=== PATIENT | male | born 1965 | race Caucasian/White ===

== ENCOUNTER → 2016-11-29 | Outpatient (CLI) | payer BC ==
[~2016-11-29] MED LIST: CLARITIN-D 10 M1 T24 PO; FLOMAX 0.40.4 MG/CAP PO; INVANZ INJ1 G/VIAL IV; LIPITOR 10MG10 MG PO; NO HOME MEDICATIONS; NORCO 325 MG-51 TAB PO; ZESTRIL 10MG10 MG PO; ZOFRAN 4MG T4 MG/TAB PO
== END ==
LOC: COL.PUL 09:53
DX: R05 Cough (principal)

== ENCOUNTER 2016-12-26 17:11 | Inpatient (IN) | payer BC ==
[~2016-12-26] VITALS: Ht 182.9 cm; Wt 85.2 kg
[~2016-12-26 17:11] MED LIST changes: -INVANZ INJ1 G/VIAL IV; -LIPITOR 10MG10 MG PO; -ZESTRIL 10MG10 MG PO
[2016-12-26 17:20] VITALS: BP 154/84; PULSE 109; TEMP 101.4
[2016-12-26 18:31] LABS: CREATININE, serum 1.17 mg/dL (0.66-1.25)
[2016-12-26 18:42] VITALS: BP 148/77; PULSE 115; TEMP 102.5
[2016-12-26 21:05] VITALS: BP 125/63; PULSE 115; TEMP 98.9
[2016-12-27 01:47] VITALS: BP 115/62; PULSE 87; TEMP 98.4
[2016-12-27 04:56] VITALS: BP 121/78; PULSE 81; TEMP 98.3
[2016-12-27 09:39] VITALS: BP 119/69; PULSE 83; TEMP 97.7
[2016-12-27 12:50] VITALS: BP 132/79; PULSE 80; TEMP 98.1
[2016-12-27 17:40] VITALS: BP 138/74; PULSE 88; TEMP 98.8
[2016-12-27 22:29] VITALS: BP 138/78; PULSE 101; TEMP 98.8
[2016-12-28 06:02] VITALS: BP 147/89; PULSE 91; TEMP 98.8
[2016-12-28 10:00] VITALS: BP 138/86; PULSE 78; TEMP 98.3
[2016-12-28 12:44] VITALS: BP 158/86; PULSE 84; TEMP 98.2
[2016-12-28 17:54] VITALS: BP 120/98; PULSE 74; TEMP 98.3
[2016-12-28 22:13] VITALS: BP 149/85; PULSE 80; TEMP 98.2
[2016-12-29 05:34] VITALS: BP 125/73; PULSE 77; TEMP 98.5
[2016-12-29 07:22] LABS: CREATININE, serum 0.87 mg/dL (0.66-1.25)
[2016-12-29 10:35] VITALS: BP 148/83; PULSE 71; TEMP 98.2
[2016-12-29 13:54] VITALS: BP 150/82; PULSE 87; TEMP 98.2
[2016-12-29] MEDS ORDERED: FLOMAX 0.40.4 MG/CAP PO (18:03)
[2016-12-29] MEDS ORDERED: INVANZ INJ1 G/VIAL IV (18:03)
[2017-01-14] MEDS ORDERED: LIPITOR 10MG10 MG PO (08:03)
[2017-01-14] MEDS ORDERED: ZESTRIL 10MG10 MG PO (08:03)
== END 2016-12-29 18:35 | disposition home or self-care (01) | DRG 728 ==
LOC: SURG 17:11
PROVIDERS: Urology
PROC: 02HV33Z Insertion of Infusion Device into Superior Vena Cava, Percutaneous Approach (ICD-10-PCS; principal; 2016-12-29)
DX: N41.0 Acute prostatitis (principal); N10 Acute pyelonephritis; I10 Essential (primary) hypertension; N41.1 Chronic prostatitis; B96.20 Unspecified Escherichia coli [E. coli] as the cause of diseases classified elsewhere
CPT/HCPCS: C1751; J0690; J1335; J1580; J1644; J7030; Q9967

== ENCOUNTER 2017-01-26 10:00 | Outpatient (RCR) | payer BC ==
[2016-12-30 09:29] VITALS: BP 146/90; PULSE 71; TEMP 98.6
[2016-12-31 08:17] VITALS: BP 124/83; PULSE 83; TEMP 97.8
[2017-01-01 08:24] VITALS: BP 145/84; PULSE 83
[2017-01-02 08:17] VITALS: BP 133/88; PULSE 88; TEMP 98.2
[2017-01-03 08:48] VITALS: BP 140/87; PULSE 94; TEMP 98.1
[2017-01-03 08:49] LABS: HEMATOCRIT 42.6 % (42.0-52.0); HEMOGLOBIN 14.4 g/dl (13.5-18.0); MEAN CELL VOLUME 88 fl (80.0-100.0); MEAN CORPUSCULAR HEMOGLOBIN 30 pg (27.0-31.0); MEAN CORPUSCULAR HGB CONC 34 g/dl (33.0-37.0); MEAN PLATELET VOLUME 8.8 fl (7.4-10.4); PLATELET COUNT 510 K/mm3 (130-400); RED BLOOD COUNT 4.82 M/mm3 (4.20-5.60); REDCELL DISTRIBUTION WIDTH-CV 13.7 % (11.5-14.5); WHITE BLOOD COUNT 13.7 K/mm3 (4.8-10.8)
[2017-01-03 08:55] LABS: ADJUSTED CALCIUM 8.9 mg/dL (8.4-10.2); ALBUMIN 4.1 gm/dL (3.5-5.0); BILIRUBIN,TOTAL 0.6 mg/dL (0.0-1.0); CREATININE, serum 0.85 mg/dL (0.66-1.25); POTASSIUM 4.4 mmol/L (3.4-5.0); TOTAL PROTEIN 7.1 gm/dL (6.4-8.2)
[2017-01-04 08:08] VITALS: BP 139/84; PULSE 78; TEMP 98.4
[2017-01-05 08:14] VITALS: BP 132/85; PULSE 90; TEMP 98.4
[2017-01-06 08:11] VITALS: BP 135/77; PULSE 80; TEMP 97.5
[2017-01-07 07:39] VITALS: BP 144/82; PULSE 91; TEMP 97.3
[2017-01-08 07:31] VITALS: BP 134/88; PULSE 93; TEMP 97.4
[2017-01-09 08:33] VITALS: BP 132/87; PULSE 84; TEMP 97.9
[2017-01-10 08:20] VITALS: BP 137/93; PULSE 77; TEMP 97.8
[2017-01-10 09:12] LABS: HEMATOCRIT 41.7 % (42.0-52.0); HEMOGLOBIN 13.8 g/dl (13.5-18.0); MEAN CELL VOLUME 89 fl (80.0-100.0); MEAN CORPUSCULAR HEMOGLOBIN 29 pg (27.0-31.0); MEAN CORPUSCULAR HGB CONC 33 g/dl (33.0-37.0); MEAN PLATELET VOLUME 8.7 fl (7.4-10.4); PLATELET COUNT 501 K/mm3 (130-400); RED BLOOD COUNT 4.69 M/mm3 (4.20-5.60); REDCELL DISTRIBUTION WIDTH-CV 13.8 % (11.5-14.5); WHITE BLOOD COUNT 9.2 K/mm3 (4.8-10.8)
[2017-01-10 09:22] LABS: ADJUSTED CALCIUM 9.3 mg/dL (8.4-10.2); ALBUMIN 3.8 gm/dL (3.5-5.0); BILIRUBIN,TOTAL 0.5 mg/dL (0.0-1.0); CALCIUM 9.1 mg/dL (8.4-10.2); CREATININE, serum 0.86 mg/dL (0.66-1.25); POTASSIUM 4.3 mmol/L (3.4-5.0); TOTAL PROTEIN 6.9 gm/dL (6.4-8.2)
[2017-01-11 08:15] VITALS: BP 127/84; PULSE 84; TEMP 98
[2017-01-12 08:08] VITALS: BP 131/77; PULSE 89; TEMP 97.7
[2017-01-13 08:15] VITALS: BP 127/81; PULSE 91; TEMP 98.1
[2017-01-14 08:06] VITALS: BP 118/77; PULSE 83; TEMP 97.8
[2017-01-15 08:15] VITALS: BP 125/80; PULSE 81; TEMP 97.8
[2017-01-16 08:27] VITALS: BP 117/76; PULSE 79; TEMP 97.9
[2017-01-17 08:19] VITALS: BP 121/77; PULSE 88; TEMP 98.2
[2017-01-17 08:40] LABS: BASO # 0.1 (0.0-0.2); BASO % 1.2 % (0.0-2.0); EOS # 0.2 (0.0-0.7); EOS % 2.3 % (0-4.0); GRAN # 4.4 (1.4-6.5); GRAN % 50.4 % (42.2-75.2); HEMATOCRIT 42.2 % (42.0-52.0); HEMOGLOBIN 14.2 g/dl (13.5-18.0); LYMPH # 3.2 (1.2-3.4); LYMPH % 36.7 % (20.0-51.0); MEAN CELL VOLUME 87 fl (80.0-100.0); MEAN CORPUSCULAR HEMOGLOBIN 29 pg (27.0-31.0); MEAN CORPUSCULAR HGB CONC 34 g/dl (33.0-37.0); MEAN PLATELET VOLUME 9.2 fl (7.4-10.4); MONO # 0.8 (0.1-0.6); MONO % 9.3 % (1.7-9.3); PLATELET COUNT 400 K/mm3 (130-400); RED BLOOD COUNT 4.84 M/mm3 (4.20-5.60); REDCELL DISTRIBUTION WIDTH-CV 13.4 % (11.5-14.5); WHITE BLOOD COUNT 8.6 K/mm3 (4.8-10.8)
[2017-01-17 09:16] LABS: ADJUSTED CALCIUM 9.3 mg/dL (8.4-10.2); BILIRUBIN,TOTAL 0.5 mg/dL (0.0-1.0); CALCIUM 9.3 mg/dL (8.4-10.2); CREATININE, serum 0.84 mg/dL (0.66-1.25); POTASSIUM 4.1 mmol/L (3.4-5.0)
[2017-01-18 08:15] VITALS: BP 117/73; PULSE 81; TEMP 97.4
[2017-01-19 08:09] VITALS: BP 119/80; PULSE 88; TEMP 98
[2017-01-20 08:25] VITALS: BP 116/71; PULSE 79; TEMP 98
[2017-01-21 08:14] VITALS: BP 121/81; PULSE 82; TEMP 97.7
[2017-01-22 08:48] VITALS: BP 128/76; PULSE 77; TEMP 98
[2017-01-23 08:17] VITALS: BP 121/77; PULSE 70; TEMP 97.5
[2017-01-24 08:35] VITALS: BP 121/79; PULSE 73; TEMP 97.5
[2017-01-24 09:02] LABS: BASO # 0.1 (0.0-0.2); BASO % 1.1 % (0.0-2.0); EOS # 0.3 (0.0-0.7); EOS % 4.1 % (0-4.0); GRAN # 3.4 (1.4-6.5); GRAN % 45.4 % (42.2-75.2); HEMATOCRIT 39.5 % (42.0-52.0); HEMOGLOBIN 13.3 g/dl (13.5-18.0); MEAN CELL VOLUME 87 fl (80.0-100.0); MEAN CORPUSCULAR HEMOGLOBIN 29 pg (27.0-31.0); MEAN CORPUSCULAR HGB CONC 34 g/dl (33.0-37.0); MEAN PLATELET VOLUME 9.1 fl (7.4-10.4); MONO # 0.8 (0.1-0.6); MONO % 10.1 % (1.7-9.3); PLATELET COUNT 329 K/mm3 (130-400); RED BLOOD COUNT 4.53 M/mm3 (4.20-5.60); REDCELL DISTRIBUTION WIDTH-CV 13.5 % (11.5-14.5); WHITE BLOOD COUNT 7.6 K/mm3 (4.8-10.8)
[2017-01-24 09:23] LABS: ADJUSTED CALCIUM 9.1 mg/dL (8.4-10.2); ALBUMIN 3.7 gm/dL (3.5-5.0); BILIRUBIN,TOTAL 0.6 mg/dL (0.0-1.0); CALCIUM 8.9 mg/dL (8.4-10.2); CREATININE, serum 0.76 mg/dL (0.66-1.25); POTASSIUM 4.2 mmol/L (3.4-5.0); TOTAL PROTEIN 6.6 gm/dL (6.4-8.2)
[2017-01-25 08:08] VITALS: BP 1122/78; PULSE 78; TEMP 97.7
[~2017-01-26] VITALS: Ht 182.9 cm; Wt 86.8 kg
[~2017-01-26 10:00] MED LIST changes: +INVANZ INJ1 G/VIAL IV; +LIPITOR 10MG10 MG PO; +ZESTRIL 10MG10 MG PO
[2017-01-26 10:01] VITALS: BP 141/82; PULSE 74; TEMP 98.1
== END 2017-01-26 10:11 | disposition home or self-care (01) ==
LOC: EUO 10:00
PROVIDERS: Internal Medicine Infectious Disease
DX: N41.9 Inflammatory disease of prostate, unspecified (principal); N39.0 Urinary tract infection, site not specified; R82.71 Bacteriuria
CPT/HCPCS: J1335; J1644

== ENCOUNTER → 2017-04-11 | Outpatient (CLI) | payer BC | LOC: COL.RAD 14:52 | DX: I72.2 Aneurysm of renal artery (principal); I72.8 Aneurysm of other specified arteries | CPT/HCPCS: Q9967 ==

== ENCOUNTER → 2018-10-07 | Outpatient (CLI) | payer BC | LOC: COL.RAD 09:45 | DX: M50.322 Other cervical disc degeneration at C5-C6 level (principal); M48.02 Spinal stenosis, cervical region ==

== ENCOUNTER 2018-12-25 13:27 | Day surgery (SDC) | payer BC ==
[2018-12-25] MEDS ORDERED: ASPIRIN E.C. 8181 MG PO (14:55)
[2018-12-25 16:06] VITALS: BP 121/80; PULSE 64
--- NOTE | 2018-12-25 16:06 | NUR ---
Patient returns to room 4 per cart and is awake and alert. Temp 97.3. Room air sats 97%. IV fluids infusing and denies pain or nausea. Siderails up x2 and call light in reach. Spouse in room. Drinking water and eating pudding.
[2018-12-25 16:21] VITALS: BP 128/69; PULSE 60
--- NOTE | 2018-12-25 16:21 | NUR ---
Room air sats 97%. Denies pain or nausea.
[2018-12-25 16:36] VITALS: BP 115/89; PULSE 60
--- NOTE | 2018-12-25 16:36 | NUR ---
Patient instructed to go to the office tomorrow to be instructed on 24 hour urine. Provided office number for questions and concerns.
--- NOTE | 2018-12-25 16:45 | NUR ---
IV out and dresses self. Ambulatory to the bathroom and is able to void and returns to room.
--- NOTE | 2018-12-25 16:50 | NUR ---
Dismissal instructions signed and voices understanding of these.
[2018-12-25 16:52] VITALS: BP 126/79; PULSE 64; TEMP 97.9
--- NOTE | 2018-12-25 16:55 | NUR ---
Patient dismissed to home per private vehicle driven by spouse and taken to the front door per wheelchair and assisted into car with dismissal instructions in hand.
== END 2018-12-25 16:55 | disposition home or self-care (01) ==
LOC: SDCO 13:27
DX: N21.0 Calculus in bladder (principal); N41.1 Chronic prostatitis; R31.0 Gross hematuria; J30.9 Allergic rhinitis, unspecified; E78.00 Pure hypercholesterolemia, unspecified; I10 Essential (primary) hypertension; M72.2 Plantar fascial fibromatosis; J32.9 Chronic sinusitis, unspecified; Z79.82 Long term (current) use of aspirin; Z80.0 Family history of malignant neoplasm of digestive organs; Z82.49 Family history of ischemic heart disease and other diseases of the circulatory system; Z80.8 Family history of malignant neoplasm of other organs or systems
CPT/HCPCS: C1769; J1100; J1885; J2405; J2704; J3010; J7120

== ENCOUNTER → 2020-03-15 | Outpatient (CLI) | payer BC ==
[~2020-03-15] MED LIST changes: +ASPIRIN E.C. 8181 MG PO
== END ==
LOC: COL.RAD 10:10
DX: Z00.00 Encounter for general adult medical examination without abnormal findings (principal); D34 Benign neoplasm of thyroid gland
CPT/HCPCS: Q9967

== ENCOUNTER → 2020-03-25 | Outpatient (CLI) | payer BC | LOC: COL.RAD 15:24 | DX: M41.85 Other forms of scoliosis, thoracolumbar region (principal) ==

== ENCOUNTER → 2022-03-29 | Outpatient (CLI) | payer BC | LOC: COL.RAD 11:32 | DX: K57.32 Diverticulitis of large intestine without perforation or abscess without bleeding (principal); L02.91 Cutaneous abscess, unspecified | CPT/HCPCS: Q9967 ==

== ENCOUNTER 2022-08-21 12:49 | Inpatient (IN) | payer BC ==
[~2022-08-21] VITALS: Ht 183 cm; Wt 84.9 kg
[2022-09-06] VITALS (13 sets, daily range): BP systolic 115–140; BP diastolic 59–88; PULSE 61–88; TEMP 97.4–98.1
[2022-09-06 11:22] LABS: HEMATOCRIT 43.4 % (42.0-52.0); HEMOGLOBIN 14.8 g/dl (13.5-18.0); MEAN CELL VOLUME 89 fl (80.0-100.0); MEAN CORPUSCULAR HEMOGLOBIN 30 pg (27-31); MEAN CORPUSCULAR HGB CONC 34 g/dl (33.0-37.0); MEAN PLATELET VOLUME 8.8 fl (7.4-10.4); PLATELET COUNT 403 K/mm3 (130-400); RED BLOOD COUNT 4.88 M/mm3 (4.20-5.60); REDCELL DISTRIBUTION WIDTH-CV 14.5 % (11.5-14.5)
[2022-09-06 11:46] LABS: ALBUMIN 4.4 gm/dL (3.5-5.0); BILIRUBIN,TOTAL 0.7 mg/dL (0.2-1.2); CALCIUM 9.3 mg/dL (8.4-10.2); CREATININE, serum 1.04 mg/dL (0.72-1.25); POTASSIUM 4.2 mmol/L (3.5-4.5); TOTAL PROTEIN 7.4 gm/dL (6.2-8.1)
[2022-09-06] MEDS ORDERED: CLARITIN-D 10 M1 T24 PO (12:01)
[2022-09-06] MEDS ORDERED: PROZAC40 MG PO (12:02)
[2022-09-06] MEDS ORDERED: [UNRECOGNIZED DRUG - OTHER] PO (12:05)
[2022-09-06] MEDS ORDERED: GLUCOSAMINE & C1 CA1 PO (12:06)
[2022-09-06] MEDS ORDERED: MULTI VITAMINS1 TAB PO (12:07)
[2022-09-06] MEDS ORDERED: QUERCETIN500 M1 PO (12:08)
[2022-09-06] MEDS ORDERED: REMERON 15M15 MG/TA1 PO (12:09)
[2022-09-06] MEDS ORDERED: RESTORIL30 MG PO (12:11)
[2022-09-06] MEDS ORDERED: AMBIEN 5MG TABLE5 MG PO (12:12)
[2022-09-06] MEDS ORDERED: PROVIGIL200 MG PO (12:13)
--- NOTE | 2022-09-06 20:20 | NUR ---
Patient up to ambulate in the halls with spouse. Ambulated entire floor with difficulty-tolerated well. Will monitor.
[2022-09-07] VITALS (10 sets, daily range): BP systolic 101–161; BP diastolic 61–72; PULSE 64–90; TEMP 98–98.9
--- NOTE | 2022-09-07 05:38 | NUR ---
[place] DCd at this time. 10mls NS removed from bulb. Patient tolerated well. Up to ambulate in the halls at this time. Has been INTd.
[2022-09-07 07:06] LABS: BASO % 0.1 % (0.0-2.0); GRAN % 80.7 % (42.2-75.2); HEMATOCRIT 39.6 % (42.0-52.0); HEMOGLOBIN 13.6 g/dl (13.5-18.0); LYMPH # 1.7 K/mm3 (1.2-3.4); LYMPH % 10.2 % (20.0-51.0); MEAN CELL VOLUME 91 fl (80.0-100.0); MEAN CORPUSCULAR HEMOGLOBIN 31 pg (27-31); MEAN CORPUSCULAR HGB CONC 34 g/dl (33.0-37.0); MEAN PLATELET VOLUME 9.5 fl (7.4-10.4); MONO # 1.4 K/mm3 (0.1-0.6); MONO % 8.5 % (1.7-9.3); PLATELET COUNT 364 K/mm3 (130-400); RED BLOOD COUNT 4.37 M/mm3 (4.20-5.60); REDCELL DISTRIBUTION WIDTH-CV 14.5 % (11.5-14.5)
[2022-09-07 07:29] LABS: CALCIUM 8.9 mg/dL (8.4-10.2); CREATININE, serum 1.09 mg/dL (0.72-1.25); POTASSIUM 4.5 mmol/L (3.5-4.5)
--- NOTE | 2022-09-07 08:45 | NUR ---
PATIENT ALERT AND ORIENTED X4. VSS. PATIENT HERE FOR ROBOTIC SIGMOIDECTOMY. PATIENT DENIES ANY PAIN. LAP SITES X5, CDI WITH THE EXCEPTION OF ONE SITE LEAKING. LOW TRANSVERSE WITH MINIMAL DRAINAGE ON GAUZE. IV TO LEFT FA INT. CAMERON SONG'Parminder THIS AM. PATIENT TO REPORT WHEN FEELING THE URGE TO URINATE. CALL LIGHT IN REACH.
--- NOTE | 2022-09-07 14:16 | NUR ---
Initial visit: directional bore operator went by room on rounds. Pt was resting and content. Pt has no needs right now. [id number] Consultant will follow up as needed.
[2022-09-07] MEDS ORDERED: FLOMAX 0.40.4 MG/CAP PO (18:03)
--- NOTE | 2022-09-07 22:54 | NUR ---
Patient assessed at this time, A/Ox4, see shift assessment, denies pain at this time, has been up walking to the hallway, IV to left forearm, denies further needs, call light and personal items within reach, will continue to monitor.
[2022-09-08 00:01] VITALS: BP 121/71; PULSE 63; TEMP 98.3
[2022-09-08 04:09] VITALS: BP 126/77; PULSE 59; TEMP 97.6
--- NOTE | 2022-09-08 04:46 | NUR ---
Patient resting in bed, eyes closed, has been refusing the SCD's.
[2022-09-08 07:05] VITALS: BP 139/67; PULSE 72; TEMP 97.4
--- NOTE | 2022-09-08 07:39 | NUR ---
Received shift report from the night nurse, SANGITA Bowens.
--- NOTE | 2022-09-08 08:57 | NUR ---
Pt refused Flomax 0.4 mg stated "I don't want to take that today, they gave it to me yesterday." Flomax held at this time.
[2022-09-08 09:00] VITALS: BP_SYST 139
--- NOTE | 2022-09-08 09:01 | NUR ---
Patient sitting on the bench in room, alert and oriented. 5 lap site dressing dry and intact. Patient has been passing gas and walking in the hallway per the night nurse report. Patient denies any discomfort at this time.
[2022-09-08] MEDS ORDERED: TYLENOL 500MG500 MG PO (10:09)
[2022-09-08] MEDS ORDERED: ROXICODONE 55 MG/TAB PO (10:09)
--- NOTE | 2022-09-08 10:37 | NUR ---
Django Developer met with Patient at bedside to conduct CAre Managment Assessment and discuss discharge planning. Patient reports to live in [place], [place] withhis , Louise: [phone]. Patient is established with PCP Dr. Nieto and is covered bt [facility] for insurance. Patient's preferred Rx coin machine servicer repairer is Emily. Patient denies the use of O2 and DME prior to discharge. Patient reports AD with as agent. Discharge Plan: Home with self provided transportation.
--- NOTE | 2022-09-08 11:59 | NUR ---
Discharge instruction given to patient, INT discontinued, patient has no other questions and left the unit at 1105.
== END 2022-09-08 11:05 | disposition home or self-care (01) | DRG 331 ==
LOC: SURG 09-06 10:31 → INPTSU 09-06 10:31 → SURG 09-06 12:00
PROVIDERS: ADMIT Surgery
PROC: 8E0W4CZ Robotic Assisted Procedure of Trunk Region, Percutaneous Endoscopic Approach (ICD-10-PCS; 2022-09-06)
PROC: 0DTN4ZZ Resection of Sigmoid Colon, Percutaneous Endoscopic Approach (ICD-10-PCS; principal; 2022-09-06 12:00)
DX: K57.32 Diverticulitis of large intestine without perforation or abscess without bleeding (principal); D72.829 Elevated white blood cell count, unspecified; G47.33 Obstructive sleep apnea (adult) (pediatric); F32.A Depression, unspecified; F41.9 Anxiety disorder, unspecified; N40.0 Benign prostatic hyperplasia without lower urinary tract symptoms; G47.00 Insomnia, unspecified; I10 Essential (primary) hypertension; Z87.442 Personal history of urinary calculi
CPT/HCPCS: A4314; A9284; J0690; J1170; J1650; J2250; J2370; J2704; J2795; J3010; J7120

== ENCOUNTER → 2022-10-17 | Outpatient (CLI) | payer BC ==
[~2022-10-17] MED LIST changes: +AMBIEN 5MG TABLE5 MG PO; +GLUCOSAMINE & C1 CA1 PO; +MULTI VITAMINS1 TAB PO; +PROVIGIL200 MG PO; +PROZAC40 MG PO; +QUERCETIN500 M1 PO; +REMERON 15M15 MG/TA1 PO; +RESTORIL30 MG PO; +ROXICODONE 55 MG/TAB PO; +TYLENOL 500MG500 MG PO; +[UNRECOGNIZED DRUG - OTHER] PO
== END ==
LOC: COL.RAD 10-10 12:45
DX: E04.2 Nontoxic multinodular goiter (principal)

== ENCOUNTER → 2023-07-31 | Outpatient (CLI) | payer BC | LOC: COL.RAD 14:02 | DX: R22.41 Localized swelling, mass and lump, right lower limb (principal) ==